=== PATIENT | male | born 1950 | race Asian ===

== ENCOUNTER 2021-08-18 10:14 | Emergency (ER) | payer OTHER ==
[2021-08-18] MEDS ORDERED: MECLIZINE HCL 12.5 MG TAB ONE (10:31)
[2021-08-18 11:04] LABS: Protime INR 0.94
[2021-08-18 11:06] LABS: Absolute Lymphocytes (CBC) 0.8 K/uL (0.7-4.9); Basophils % 1.1 % (0-1.3); Hematocrit 40.2 % (39.6-49.0); Lymphocytes % 25.4 % (15.3-44.8); MPV 9.3 fL (7.6-11.3); RBC Red Blood Cell Count 4.02 M/uL (4.33-5.43)
--- NOTE | 2021-08-18 11:08 | RAD REPORT ---
EXAM DESCRIPTION: CT - Head Brain Wo Cont - 08/18/2021 10:52 am CLINICAL HISTORY: DIZZINESS Headache, drowsiness COMPARISON: <Comparisons> TECHNIQUE: All CT scans are performed using dose optimization technique as appropriate and may inclu de automated exposure control or mA/KV adjustment according to patient size. FINDINGS: No intracranial hemorrhage, hydrocephalus or extra-axial fluid collection.No areas of brai n edema or evidence of midline shift. The paranasal sinuses and mastoids are clear. The calvarium is intact. IMPRESSION: No acute intracranial abnormality.
[2021-08-18 11:15] LABS: BUN Blood Urea Nitrogen 17 mg/dL (7-18); Bicarbonate 29 mmol/L (21-32); Glucose Level 91 mg/dL (74-106); Sodium Level 143 mmol/L (136-145); Troponin (Emerg Dept Use Only) < 0.02 ng/mL (0.0-0.045)
--- NOTE | 2021-08-18 11:46 | ER ---
Nurse's Notes [facility] Name: Olvin Bradley Age: 70 yrs Sex: Male : 1950 Arrival Date: 08/18/2021 Time: 10:15 Bed 6 Private MD: Diagnosis: Other peripheral vertigo, unspecified ear Presentation: 08/18 10:27 Chief complaint: Patient's son or daughter states: has had intermittent dizziness for iw past week, today it was worse, he almost fell over and it lasted for a longer time, feels like the room is spinning , also has had intermittent headache. Coronavirus screen: At this time, the client does not indicate any symptoms associated with coronavirus-19. Ebola Screen: Patient negative for fever greater than or equal to 101.5 degrees Fahrenheit, and additional compatible Ebola Virus Disease symptoms Patient denies exposure to infectious person. Patient denies travel to an Ebola-affected area in the 21 days before illness onset. No symptoms or risks identified at this time. Initial Sepsis Screen: Does the patient meet any 2 criteria? No. Patient's initial sepsis screen is negative. Does the patient have a suspected source of infection? No. Patient's initial sepsis screen is negative. Risk Assessment: Do you want to hurt yourself or someone else? Patient reports no desire to harm self or others. Onset of symptoms was August 11, 2021. 10:27 Method Of Arrival: Ambulatory iw 10:27 Acuity: ANNE 3 iw Triage Assessment: 10:30 General: Appears in no apparent distress. comfortable, Behavior is cooperative, bp appropriate for age, anxious. Pain: Denies pain. EENT: No signs and/or symptoms were reported regarding the EENT system. Neuro: Level of Consciousness is awake, alert, obeys commands, Oriented to Appropriate for age. Cardiovascular: No deficits noted. Respiratory: No deficits noted. GI: No signs and/or symptoms were reported involving the gastrointestinal system. : No signs and/or symptoms were reported regarding the genitourinary system. Derm: No signs and/or symptoms reported regarding the dermatologic system. Musculoskeletal: No deficits noted. Historical: - Allergies: 10:30 No Known Allergies; iw - Home Meds: 10:30 None [Active]; iw - PMHx: 10:30 None; iw - PSHx: 10:30 Cholecystectomy; iw - Immunization history:: Adult Immunizations. - Social history:: Smoking status: Patient denies any tobacco usage or history of. Screenin:30 Abuse screen: Denies threats or abuse. Denies injuries from another. Nutritional bp screening: No deficits noted. Tuberculosis screening: No symptoms or risk factors identified. Fall Risk None identified. Assessment: 10:30 General: SEE TRIAGE NOTE. bp 11:59 Reassessment: PT D/C HOME AMBULATORY WITH FAMILY, DX WITH POSITIONAL VERTIGO. bp Vital Signs: 10:27 BP 153 / 74; Pulse 73; Resp 16; Temp 97.3; Pulse Ox 98% on R/A; Weight 63.5 kg; Height iw 5 ft. 0 in. (152.40 cm); 10:30 BP 126 / 61; Pulse 61; Resp 20; Pulse Ox 96% ; bp 11:30 BP 116 / 61; Pulse 66; Resp 17; Temp 97.5; Pulse Ox 97% ; bp 10:27 Body Mass Index 27.34 (63.50 kg, 152.40 cm) iw ED Course: 10:15 Patient arrived in ED. as 10:17 Vikram Borjas MD is Attending Physician. sp3 10:27 Dawson Briscoe, ANABELA is Primary Nurse. bp 10:30 Triage completed. iw 10:30 Arm band placed on. iw 10:30 Patient has correct armband on for positive identification. Bed in low position. Call bp light in reach. Side rails up X2. Adult w/ patient. 10:30 Inserted saline lock: 22 gauge in right antecubital area, using aseptic technique. bp forearm, using aseptic technique. Blood collected. 10:52 CT Head Brain wo Cont In Process Unspecified. EDMS 11:59 No provider procedures requiring assistance completed. IV discontinued, intact, bp bleeding controlled, No redness/swelling at site. Pressure dressing applied. Administered Medications: 10:40 Drug: Meclizine 25 mg Route: PO; bp 11:12 Follow up: Response: No adverse reaction bp Outcome: 11:45 Discharge ordered by . sp3 11:59 Discharged to home ambulatory, with family. bp 11:59 Condition: stable 11:59 Discharge instructions given to patient, Instructed on discharge instructions, follow up and referral plans. medication usage, Demonstrated understanding of instructions, follow-up care, medications, Prescriptions given X 1. 12:00 Patient left the ED. bp Signatures: Dispatcher [employer] Shari Gasca Irene, RN RN iw Peltier, Brian, RN RN bp Vikram Borjas MD MD sp3
--- NOTE | 2021-08-18 11:46 | EDPHYS ---
Physician Documentation [facility] Name: Olvin Bradley Age: 70 yrs Sex: Male : 1950 Arrival Date: 08/18/2021 Time: 10:15 Bed 6 Private MD: ED Physician Vikram Borjas HPI: 08/18 10:32 This 70 yrs old Male presents to ER via Ambulatory with complaints of Dizziness. sp3 10:32 70-year-old male with no known past medical history and on no medications presents with sp3 a 1 week history of "dizziness" described as the room spinning which this morning became a bit worse and so patient was brought into the ED by his daughter. Daughter states that his dizziness was episodic approximately once a day or every other day this morning's dizziness episode was 1 where he "almost fell". Patient did not fall, have any trauma, or have any syncope. There were no periepisode symptoms such as neck pain, chest pain, shortness of breath, URI symptoms, abdominal pain, back pain, memory loss, weakness, focal neuro deficit, any other symptoms. Patient does complain of an episodic headache which does not seem to correlate with the dizziness episodes. Patient denies ringing in the ears, hearing changes, or earaches. Symptoms are worse when he is mobile or stands up. Symptoms tend to dissipate when patient is at rest. No family history of CVA, ICH, brain mass, cancer, or any other significant family history that is known.. Historical: - Allergies: 10:30 No Known Allergies; iw - Home Meds: 10:30 None [Active]; iw - PMHx: 10:30 None; iw - PSHx: 10:30 Cholecystectomy; iw - Immunization history:: Adult Immunizations. - Social history:: Smoking status: Patient denies any tobacco usage or history of. ROS: 10:34 Constitutional: Negative for fever, chills, and weight loss, Eyes: Negative for injury, sp3 pain, redness, and discharge, ENT: Negative for injury, pain, and discharge, Neck: Negative for injury, pain, and swelling, Cardiovascular: Negative for chest pain, palpitations, and edema, Respiratory: Negative for shortness of breath, cough, wheezing, and pleuritic chest pain, Abdomen/GI: Negative for abdominal pain, nausea, vomiting, diarrhea, and constipation, Back: Negative for injury and pain, : Negative for injury, bleeding, discharge, and swelling, MS/Extremity: Negative for injury and deformity, Skin: Negative for injury, rash, and discoloration, Psych: Negative for depression, anxiety, suicide ideation, homicidal ideation, and hallucinations, Allergy/Immunology: Negative for hives, rash, and allergies, Endocrine: Negative for neck swelling, polydipsia, polyuria, polyphagia, and marked weight changes. 10:34 All other systems are negative. Exam: 10:34 Constitutional: This is a well developed, well nourished patient who is awake, alert, sp3 and in no acute distress. Head/Face: Normocephalic, atraumatic. ENT: Nares patent. No nasal discharge, no septal abnormalities noted. External auditory canals are clear. Oropharynx with no redness, swelling, or masses, exudates, or evidence of obstruction, uvula midline. Mucous membranes moist. Neck: Trachea midline, no thyromegaly or masses palpated, and no cervical lymphadenopathy. Supple, full range of motion without nuchal rigidity, or vertebral point tenderness. No Meningismus. Chest/axilla: Normal chest wall appearance and motion. Nontender with no deformity. No lesions are appreciated. Cardiovascular: Regular rate and rhythm with a normal S1 and S2. No gallops, murmurs, or rubs. Normal PMI, no JVD. No pulse deficits. Respiratory: Lungs have equal breath sounds bilaterally, clear to auscultation and percussion. No rales, rhonchi or wheezes noted. No increased work of breathing, no retractions or nasal flaring. Abdomen/GI: Soft, non-tender, with normal bowel sounds. No distension or tympany. No guarding or rebound. No evidence of tenderness throughout. Back: No spinal tenderness. No costovertebral tenderness. Full range of motion. Skin: Warm, dry with normal turgor. Normal color with no rashes, no lesions, and no evidence of cellulitis. MS/ Extremity: Pulses equal, no cyanosis. Neurovascular intact. Full, normal range of motion. Neuro: Awake and alert, GCS 15, oriented to person, place, time, and situation. Cranial nerves II-XII grossly intact. Motor strength 5/5 in all extremities. Sensory grossly intact. Cerebellar exam normal. Patient is vertiginous on gait. Horizontal nystagmus noted on exam. No other abnormalities noted. Psych: Awake, alert, with orientation to person, place and time. Behavior, mood, and affect are within normal limits. 11:44 ECG was reviewed by the Attending Physician. CG demonstrates normal sinus rhythm at 60 sp3 bpm normal intervals, normal axis, normal QRS, nonspecific diffuse ST/T changes without evidence of acute ischemia. No old EKGs available. Vital Signs: 10:27 BP 153 / 74; Pulse 73; Resp 16; Temp 97.3; Pulse Ox 98% on R/A; Weight 63.5 kg; Height iw 5 ft. 0 in. (152.40 cm); 10:30 BP 126 / 61; Pulse 61; Resp 20; Pulse Ox 96% ; bp 11:30 BP 116 / 61; Pulse 66; Resp 17; Temp 97.5; Pulse Ox 97% ; bp 10:27 Body Mass Index 27.34 (63.50 kg, 152.40 cm) iw MDM: 10:31 Patient medically screened. sp3 10:35 Data reviewed: vital signs, nurses notes. ED course: 70-year-old male presents with sp3 vertigo x1 week with an acute episode this morning. At this time based on history and physical I believe patient's vertigo is peripheral and not central. Will obtain routine cardiac labs and a CT scan of the head and also administer 25 mg of meclizine p.o. If patient improves and work-up is negative, will discharge on p.o. meclizine with PCP and neurology follow-up. While at rest patient has no symptoms. [employer] maneuvers would not be attempted due to patient's age.. 11:44 ED course: Patient CT scan and laboratory values reviewed. No significant abnormalities sp3 noted. Patient does feel significantly improved after the meclizine p.o. and therefore I will prescribe that as part of his discharge plan. Patient to follow-up with his PCP and ENT as needed.. 08/18 10:32 Order name: Basic Metabolic Panel; Complete Time: 11:31 sp3 08/18 10:32 Order name: CBC with Diff; Complete Time: 11: sp3 08/18 10:32 Order name: PT-INR; Complete Time: 11:13 sp3 08/18 10:32 Order name: Troponin (emerg Dept Use Only); Complete Time: 11:31 sp3 08/18 10:32 Order name: CT Head Brain wo Cont; Complete Time: 11:13 sp3 08/18 10:32 Order name: EKG; Complete Time: 10:32 sp3 08/18 10:32 Order name: Cardiac monitoring; Complete Time: 11: sp3 08/18 10:32 Order name: EKG - Nurse/Tech; Complete Time: 11: sp3 08/18 10:32 Order name: IV Saline Lock; Complete Time: 11: sp3 08/18 10:32 Order name: Labs collected and sent; Complete Time: 11: sp3 08/18 10:32 Order name: O2 Per Protocol; Complete Time: 11: sp3 08/18 10:32 Order name: O2 Sat Monitoring; Complete Time: 11: sp3 Administered Medications: 10:40 Drug: Meclizine 25 mg Route: PO; bp 11:12 Follow up: Response: No adverse reaction bp Disposition Summary: 08/18/21 11:45 Discharge Ordered Location: Home sp3 Condition: Stable sp3 Diagnosis - Other peripheral vertigo, unspecified ear sp3 Followup: sp3 - With: Private Physician - When: - Reason: Recheck today's complaints Discharge Instructions: - Discharge Summary Sheet sp3 - Benign Positional Vertigo sp3 Forms: - Medication Reconciliation Form sp3 - Thank You Letter sp3 - Antibiotic Education sp3 - Prescription Opioid Use sp3 Prescriptions: - Meclizine 25 mg Oral Tablet - take 1 tablet by ORAL route every 8 hours As needed; 30 tablet; Refills: 0, sp3 Product Selection Permitted Signatures: Dispatcher [employer] Cortney Ruiz, RN Dawson Reese RN RN bp Patel, Setul, MD MD sp3
[2021-08-18 12:07] VITALS: BP 116/61; TEMP 97.5; O2SAT 97
== END 2021-08-18 12:00 | disposition home or self-care (01) ==
LOC: ER 10:14
DX: H81.399 Other peripheral vertigo, unspecified ear (principal)
CPT/HCPCS: 36415; 70450; 80048; 84484; 85025; 85610; 93005; 99284